=== PATIENT | male | born 1960 | race Two or more races ===

== ENCOUNTER 2019-02-25 19:09 | Emergency (ER) | payer SELFPAY ==
[~2019-02-25] VITALS: Ht 182.9 cm; Wt 72.6 kg
--- NOTE | 2019-02-25 19:27 | NUR ---
BIBS FOR C/O LEFT CP FOR THE PAST FEW HOURS. AGRIVATED BY BREATHING . DENIED ANY HX OR HOME MEDS. PLACED ON A MONITOR . VSS. WILL CONT TO MONITOR,
[2019-02-25] MEDS ORDERED: ASPIRIN 325 MG TABLET ONE (19:47)
[2019-02-25 19:58] LABS: BASOPHILS # (AUTO) 0.1 /CMM (0.0-0.2); BASOPHILS % (AUTO) 1.5 % (0.0-2.0); EOSINOPHILS % (AUTO) 2.2 % (0.0-6.0); HEMATOCRIT 39 % (39-51); LYMPHOCYTES # (AUTO) 1.6 /CMM (0.8-4.8); LYMPHOCYTES % (AUTO) 29.7 % (20.0-44.0); MEAN CORPUSCULAR HGB CONC 34 g/dl (31.0-36.0); MEAN CORPUSCULAR VOLUME 101 fL (80-96); MONOCYTES # (AUTO) 0.5 /CMM (0.1-1.30); NEUTROPHILS # (AUTO) 3.1 /CMM (1.8-8.9); NEUTROPHILS % (AUTO) 56.6 % (43.0-81.0); PLATELET COUNT (AUTO) 187 /CMM (150-450); RED BLOOD CELL COUNT(AUTO) 3.81 MIL/uL (4.5-6.0); WHITE BLOOD COUNT (AUTO) 5.5 K/uL (4.3-11.0)
[2019-02-25] MEDS ORDERED: ASPIRIN 325 MG TABLET PO ONE (20:00)
[2019-02-25 20:06] LABS: CALCIUM, SERUM 8.3 mg/dL (8.5-10.1); CARBON DIOXIDE 27 mmol/L (21-32); CHLORIDE 108 mmol/L (98-107); CREATININE 1.1 mg/dL (0.6-1.3); GLUCOSE 111 mg/dL (74-106); SODIUM SERUM 141 mmol/L (136-145); UREA NITROGEN, BLOOD 13 mg/dL (7-18)
--- NOTE | 2019-02-25 21:28 | NUR ---
Patient discharged to home in stable condition. Written and verbal after care instructions given. Patient verbalizes understanding of instruction.
[2019-02-25 21:31] VITALS: BP 116/76
== END 2019-02-25 21:32 | disposition home or self-care (01) ==
LOC: ER 19:11
DX: R07.89 Other chest pain (principal); I44.4 Left anterior fascicular block; F12.10 Cannabis abuse, uncomplicated
CPT/HCPCS: 36415; 71046; 80048-TC; 84484-TC; 85025-TC